=== PATIENT | female | born 1960 | race Caucasian/White ===

== ENCOUNTER 2017-12-10 17:25 | Inpatient (IN) ==
[2017-12-10] MEDS ORDERED: ONDANSETRON 4 MG/2 ML VIAL IV STA (18:19)
[2017-12-10] MEDS ORDERED: SODIUM CHLORIDE 0.9% 1,000 ML IV STA (18:19)
[2017-12-10 19:09] LABS: Basophils % 0.6 % (0.0-0.8); Eosinophils # 0.1 10*3/uL (0.0-0.87); Eosinophils % 1.4 % (0.00-10.9); Hematocrit 34.4 VOL% (35.7-47.0); Hemoglobin 12.2 GM/DL (12.0-16.0); Immature Granulocytes % 0.9 %; Immature Granulocytes Absolute 0.06 #; Lymphocytes # 0.8 10*3/uL (1.4-4.0); Lymphocytes % 12.5 % (21.3-54.2); Mean Corpuscular HGB Conc 35.5 GM/DL (32-36); Mean Corpuscular Hemoglobin 25 PG (27-34); Mean Corpuscular Volume 71.5 FL (87-102); Mean Platelet Volume 9.6 FL (9.6-12.0); Monocytes # 0.4 10*3/uL (0.11-0.8); Monocytes % 6.6 % (1.7-12.7); Platelet Count 495 T/CUMM (130-400); Red Blood Count 4.81 MC/CUMM (3.8-5.5); Red Cell Distribution Width 15.3 % (9.3-17.3); White Blood Count 6.4 T/CUMM (4-12)
[2017-12-10 19:13] LABS: Apearance,Urine Slightly Hazy (Clear); Bacteria,Urine Occasional /HPF (Few); Bilirubin,Urine Negative (Negative); Blood, Urine Negative (Negative); Glucose,Urine (UA) Negative (Negative); Hyaline Casts,Urine 1 /LPF (0-3); Ketones,Urine 5 mg/dL (Negative); Mucus,Urine Occasional /LPF (Occasional); Nitrite,Urine Negative (Negative); Protein,Urine Negative; RBC,Urine 1 /HPF (0-4); Squamous Epithelial Cell,Urine Occasional /HPF (0-10); Urine Color Amber (Yellow); Urine Specific Gravity 1.012 (1.001-1.035); WBC,Urine 8 /HPF (0-6)
[2017-12-10 19:31] LABS: Albumin 1.8 G/DL (3.4-5.0); Bilirubin,Total 1.7 MG/DL (0.2-1.0); Osmolality,Calculated 266.1 MOS/KG (273-304); Total Protein 5.4 G/DL (6.4-8.3)
[2017-12-10 19:40] LABS: Potassium 2.1 MMOL/L (3.5-5.1)
[2017-12-10] MEDS ORDERED: POTASSIUM CHLORIDE INJ 40 MEQ in SODIUM CHLORIDE 0.45% 1,000 ML IV SCH ×2 (20:30→21:00)
[2017-12-10] MEDS ORDERED: ALBUTEROL 2.5 MG/3 ML NEB RESP TX PRN (21:39)
[2017-12-10] MEDS ORDERED: ENOXAPARIN 40 MG/0.4 ML SYRINGE SUBCUT SCH (22:00)
[2017-12-10] MEDS ORDERED: CIPROFLOXACIN 400 MG/200 ML PREMIX IV ONE (22:04)
[2017-12-10] MEDS: MORPHINE 4 MG/1 ML VIAL IV PRN (22:08)
[2017-12-10] MEDS: CIPROFLOXACIN INJ 400 MG in PREMIX 1 EACH IV SCH (22:15)
[2017-12-11] MEDS: metroNIDAZOLE INJ 500 MG in PREMIX 1 EACH IV SCH ×4 (01:05→23:25)
[2017-12-11] MEDS: methylPREDNISolone SOD SUC 40 MG/1 ML VIAL IV SCH ×4 (01:05→18:02)
[2017-12-11] MEDS: POTASSIUM CHLORIDE INJ 40 MEQ in SODIUM CHLORIDE 0.9% 1,000 ML IV SCH ×2 (01:30→10:41)
[2017-12-11] MEDS ORDERED: SODIUM CHLORIDE 0.9% 500 ML IV ONE ×2 (04:33→10:40)
[2017-12-11 05:37] LABS: Basophils % 0.2 % (0.0-0.8); Eosinophils % 0.1 % (0.00-10.9); Hematocrit 28.5 VOL% (35.7-47.0); Hemoglobin 10.1 GM/DL (12.0-16.0); Lymphocytes # 0.3 10*3/uL (1.4-4.0); Lymphocytes % 3.2 % (21.3-54.2); Mean Corpuscular HGB Conc 35.4 GM/DL (32-36); Mean Corpuscular Hemoglobin 25 PG (27-34); Mean Corpuscular Volume 71.6 FL (87-102); Mean Platelet Volume 9.9 FL (9.6-12.0); Monocytes # 0.2 10*3/uL (0.11-0.8); Monocytes % 2.3 % (1.7-12.7); Neutrophils # 9.4 10*3/uL (1.4-7.4); Neutrophils % 93.2 % (38.7-73.9); Platelet Count 379 T/CUMM (130-400); Red Blood Count 3.98 MC/CUMM (3.8-5.5); Red Cell Distribution Width 15.2 % (9.3-17.3); White Blood Count 10.1 T/CUMM (4-12)
[2017-12-11 05:51] LABS: Calcium 6.6 MG/DL (8.5-10.1); Osmolality,Calculated 268.8 MOS/KG (273-304); Potassium 2.6 MMOL/L (3.5-5.1)
[2017-12-11 07:13] LABS: Band Neutrophils 22 % (0-10); Hypochromasia 3+; Lymphocytes 4 % (20-55); Platelet Estimate Normal; Segmented Neutrophils 70 % (50-85); Target Cells 2+; Total Cells Counted 100
[2017-12-11] MEDS ORDERED: THEOPHYLLINE ER 300 MG TABLET PO SCH (08:00)
[2017-12-11] MEDS ORDERED: PANTOPRAZOLE 40 MG TABLET PO SCH (09:00)
[2017-12-11] MEDS: CETIRIZINE 10 MG TABLET PO SCH (09:03)
[2017-12-11] MEDS: LOSARTAN 50 MG TABLET PO SCH (09:05)
[2017-12-11] MEDS: FLUTICASONE 50 MCG NASAL SPRAY 16 GM BOTTLE BOTH NARES SCH (09:10)
[2017-12-11] MEDS: MORPHINE 4 MG/1 ML VIAL IV PRN (09:10)
[2017-12-11] MEDS: MESALAMINE 800 MG TABLET PO SCH ×3 (09:30→20:48)
[2017-12-11] MEDS: CIPROFLOXACIN INJ 400 MG in PREMIX 1 EACH IV SCH ×2 (10:18→21:05)
[2017-12-11] MEDS ORDERED: MAGNESIUM SULF RIDER 2 GM in PREMIX 1 EACH IV PRN (11:16)
[2017-12-11] MEDS ORDERED: MAGNESIUM SULF RIDER 4 GM in PREMIX 1 EACH IV PRN (11:16)
[2017-12-11] MEDS ORDERED: FERROUS GLUCONATE 324 MG TABLET PO SCH (12:00)
[2017-12-11] MEDS ORDERED: IRON SUCROSE 100 MG/5 ML VIAL IV SCH (13:00)
[2017-12-11] MEDS: traMADol 50 MG TABLET PO PRN ×2 (15:18→20:48)
[2017-12-11] MEDS: SODIUM CHLOR 0.9% KCL 40 MEQ 40 MEQ/1,000 ML BAG IV SCH (17:58)
[2017-12-11] MEDS: IRON SUCROSE 100 MG in SODIUM CHLORIDE 0.9% 100 ML IV SCH (18:00)
[2017-12-11] MEDS: MONTELUKAST 10 MG TABLET PO SCH (20:48)
[2017-12-12] MEDS: methylPREDNISolone SOD SUC 40 MG/1 ML VIAL IV SCH ×4 (00:29→18:13)
[2017-12-12] MEDS: SODIUM CHLOR 0.9% KCL 40 MEQ 40 MEQ/1,000 ML BAG IV SCH ×2 (05:23→14:40)
[2017-12-12 05:46] LABS: Basophils % 0.2 % (0.0-0.8); Hematocrit 27.7 VOL% (35.7-47.0); Hemoglobin 10.2 GM/DL (12.0-16.0); Immature Granulocytes % 2.2 %; Immature Granulocytes Absolute 0.21 #; Lymphocytes # 0.7 10*3/uL (1.4-4.0); Lymphocytes % 6.9 % (21.3-54.2); Mean Corpuscular HGB Conc 36.8 GM/DL (32-36); Mean Corpuscular Hemoglobin 25 PG (27-34); Mean Corpuscular Volume 68.7 FL (87-102); Mean Platelet Volume 10.2 FL (9.6-12.0); Monocytes # 0.4 10*3/uL (0.11-0.8); Monocytes % 3.7 % (1.7-12.7); NRBC # 0.02 10*3/uL; Neutrophils # 8.5 10*3/uL (1.4-7.4); Platelet Count 406 T/CUMM (130-400); Red Blood Count 4.03 MC/CUMM (3.8-5.5); Red Cell Distribution Width 15.2 % (9.3-17.3); White Blood Count 9.7 T/CUMM (4-12)
[2017-12-12 06:20] LABS: Anisocytosis 1+; Band Neutrophils 51 % (0-10); Lymphocytes 7 % (20-55); Platelet Estimate Normal; Segmented Neutrophils 39 % (50-85); Target Cells Few; Total Cells Counted 100
[2017-12-12] MEDS: metroNIDAZOLE INJ 500 MG in PREMIX 1 EACH IV SCH ×2 (07:07→15:55)
[2017-12-12] MEDS: FLUTICASONE 50 MCG NASAL SPRAY 16 GM BOTTLE BOTH NARES SCH (08:39)
[2017-12-12] MEDS: IRON SUCROSE 100 MG in SODIUM CHLORIDE 0.9% 100 ML IV SCH (08:39)
[2017-12-12] MEDS: MESALAMINE 800 MG TABLET PO SCH ×3 (10:25→21:18)
[2017-12-12] MEDS: CETIRIZINE 10 MG TABLET PO SCH (10:25)
[2017-12-12] MEDS: traMADol 50 MG TABLET PO PRN ×2 (10:25→16:49)
[2017-12-12] MEDS: CIPROFLOXACIN INJ 400 MG in PREMIX 1 EACH IV SCH ×2 (11:07→21:18)
[2017-12-12] MEDS: ONDANSETRON 4 MG/2 ML VIAL IV PRN (21:18)
[2017-12-12] MEDS: MONTELUKAST 10 MG TABLET PO SCH (21:18)
[2017-12-12] MEDS: MORPHINE 4 MG/1 ML VIAL IV PRN (21:19)
[2017-12-13] MEDS: methylPREDNISolone SOD SUC 40 MG/1 ML VIAL IV SCH ×4 (00:04→21:10)
[2017-12-13] MEDS: traMADol 50 MG TABLET PO PRN ×3 (00:05→18:51)
[2017-12-13] MEDS: metroNIDAZOLE INJ 500 MG in PREMIX 1 EACH IV SCH ×2 (00:05→06:41)
[2017-12-13] MEDS: SODIUM CHLOR 0.9% KCL 40 MEQ 40 MEQ/1,000 ML BAG IV SCH ×3 (00:06→22:19)
[2017-12-13] MEDS: MORPHINE 4 MG/1 ML VIAL IV PRN ×2 (06:12→21:10)
[2017-12-13 06:21] LABS: Osmolality,Calculated 265.2 MOS/KG (273-304)
[2017-12-13 09:23] LABS: Albumin 1.6 G/DL (3.4-5.0); Bilirubin,Direct 0.63 MG/DL (0.0-0.20); Bilirubin,Indirect 0.3 MG/DL (0.0-1.0); Bilirubin,Total 0.9 MG/DL (0.2-1.0); Total Protein 4.9 G/DL (6.4-8.3)
[2017-12-13] MEDS ORDERED: LIDOCAINE 1% 5 ML VIAL ONE (10:16)
[2017-12-13] MEDS ORDERED: PROPOFOL 200 MG/20 ML VIAL IV ONE (10:16)
[2017-12-13] MEDS: MESALAMINE 800 MG TABLET PO SCH ×3 (10:36→21:10)
[2017-12-13] MEDS: CETIRIZINE 10 MG TABLET PO SCH (10:37)
[2017-12-13] MEDS: FLUTICASONE 50 MCG NASAL SPRAY 16 GM BOTTLE BOTH NARES SCH (10:37)
[2017-12-13] MEDS: IRON SUCROSE 100 MG in SODIUM CHLORIDE 0.9% 100 ML IV SCH (10:37)
[2017-12-13] MEDS: LOSARTAN 50 MG TABLET PO SCH (10:37)
[2017-12-13] MEDS: MEROPENEM 1,000 MG in SYRINGE 1 EACH IV SCH ×2 (10:38→17:13)
[2017-12-13] MEDS ORDERED: MEROPENEM 1,000 MG in SODIUM CHLORIDE 0.9% 100 ML IV ONE (11:00)
[2017-12-13] MEDS: METOCLOPRAMIDE 10 MG/2 ML VIAL IV SCH ×2 (12:51→17:51)
[2017-12-13] MEDS: MONTELUKAST 10 MG TABLET PO SCH (21:10)
[2017-12-13] MEDS: ONDANSETRON 4 MG/2 ML VIAL IV PRN (21:10)
[2017-12-14] MEDS: METOCLOPRAMIDE 10 MG/2 ML VIAL IV SCH ×5 (00:57→21:08)
[2017-12-14] MEDS: MEROPENEM 1,000 MG in SYRINGE 1 EACH IV SCH ×3 (00:59→16:47)
[2017-12-14] MEDS: methylPREDNISolone SOD SUC 40 MG/1 ML VIAL IV SCH ×3 (03:32→14:32)
[2017-12-14] MEDS: SODIUM CHLOR 0.9% KCL 40 MEQ 40 MEQ/1,000 ML BAG IV SCH ×2 (05:34→14:32)
[2017-12-14] MEDS: traMADol 50 MG TABLET PO PRN ×2 (06:15→17:30)
[2017-12-14 06:29] LABS: Basophils % 0.1 % (0.0-0.8); Hemoglobin 10.2 GM/DL (12.0-16.0); Immature Granulocytes % 0.8 %; Immature Granulocytes Absolute 0.06 #; Lymphocytes # 0.4 10*3/uL (1.4-4.0); Lymphocytes % 4.6 % (21.3-54.2); Mean Corpuscular Hemoglobin 25 PG (27-34); Mean Corpuscular Volume 73.9 FL (87-102); Mean Platelet Volume 10.2 FL (9.6-12.0); Monocytes # 0.3 10*3/uL (0.11-0.8); Monocytes % 4.2 % (1.7-12.7); Neutrophils # 7.1 10*3/uL (1.4-7.4); Neutrophils % 90.3 % (38.7-73.9); Platelet Count 301 T/CUMM (130-400); Red Blood Count 4.06 MC/CUMM (3.8-5.5); White Blood Count 7.8 T/CUMM (4-12)
[2017-12-14 06:55] LABS: Band Neutrophils 1 % (0-10); Hypochromasia 1+; Lymphocytes 5 % (20-55); Platelet Estimate Adequate; Segmented Neutrophils 92 % (50-85); Total Cells Counted 100
[2017-12-14 07:00] LABS: Calcium 7.2 MG/DL (8.5-10.1); Osmolality,Calculated 267.1 MOS/KG (273-304)
[2017-12-14] MEDS: LOSARTAN 50 MG TABLET PO SCH (09:12)
[2017-12-14] MEDS: MESALAMINE 800 MG TABLET PO SCH ×3 (09:12→21:08)
[2017-12-14] MEDS: CETIRIZINE 10 MG TABLET PO SCH (09:12)
[2017-12-14] MEDS: IRON SUCROSE 100 MG in SODIUM CHLORIDE 0.9% 100 ML IV SCH (09:14)
[2017-12-14] MEDS: FLUTICASONE 50 MCG NASAL SPRAY 16 GM BOTTLE BOTH NARES SCH (09:14)
[2017-12-14] MEDS: MORPHINE 4 MG/1 ML VIAL IV PRN ×2 (09:17→13:06)
[2017-12-14] MEDS: SODIUM CHLORIDE 0.9% 1,000 ML IV SCH (16:46)
[2017-12-14] MEDS: FLUCONAZOLE 100 MG TABLET PO SCH (16:47)
[2017-12-14] MEDS: ALBUTEROL 1.25 MG/3 ML NEB RESP TX SCH (18:40)
[2017-12-14] MEDS: MONTELUKAST 10 MG TABLET PO SCH (21:08)
[2017-12-15] MEDS: ALBUTEROL 1.25 MG/3 ML NEB RESP TX SCH ×4 (00:10→19:16)
[2017-12-15] MEDS: traMADol 50 MG TABLET PO PRN ×3 (01:08→20:22)
[2017-12-15] MEDS: MEROPENEM 1,000 MG in SYRINGE 1 EACH IV SCH ×3 (01:20→17:20)
[2017-12-15] MEDS: METOCLOPRAMIDE 10 MG/2 ML VIAL IV SCH ×4 (03:21→20:36)
[2017-12-15] MEDS: SODIUM CHLORIDE 0.9% 1,000 ML IV SCH ×2 (06:27→20:39)
[2017-12-15 08:21] LABS: Albumin 1.6 G/DL (3.4-5.0); Bilirubin,Total 1.2 MG/DL (0.2-1.0); Calcium 7.5 MG/DL (8.5-10.1); Osmolality,Calculated 269.8 MOS/KG (273-304); Potassium 4.2 MMOL/L (3.5-5.1); Total Protein 4.8 G/DL (6.4-8.3)
[2017-12-15] MEDS: predniSONE 20 MG TABLET PO SCH (09:34)
[2017-12-15] MEDS: LOSARTAN 50 MG TABLET PO SCH (09:34)
[2017-12-15] MEDS: MESALAMINE 800 MG TABLET PO SCH ×3 (09:34→20:22)
[2017-12-15] MEDS: CETIRIZINE 10 MG TABLET PO SCH (09:34)
[2017-12-15] MEDS: FLUTICASONE 50 MCG NASAL SPRAY 16 GM BOTTLE BOTH NARES SCH (09:35)
[2017-12-15] MEDS: KETOROLAC 30 MG/1 ML VIAL IV PRN (14:32)
[2017-12-15] MEDS: FLUCONAZOLE 100 MG TABLET PO SCH (16:58)
[2017-12-15] MEDS: MONTELUKAST 10 MG TABLET PO SCH (22:23)
[2017-12-15] MEDS: ALUMINUM/MAGNES/SIMETH MAX STR 30 ML UDCUP PO PRN (22:23)
[2017-12-16] MEDS: ALBUTEROL 1.25 MG/3 ML NEB RESP TX SCH ×4 (00:16→18:57)
[2017-12-16] MEDS: MEROPENEM 1,000 MG in SYRINGE 1 EACH IV SCH ×3 (00:53→16:45)
[2017-12-16] MEDS: ALUMINUM/MAGNES/SIMETH MAX STR 30 ML UDCUP PO PRN ×2 (03:03→10:21)
[2017-12-16] MEDS: METOCLOPRAMIDE 10 MG/2 ML VIAL IV SCH (05:55)
[2017-12-16 06:03] LABS: Basophils % 0.1 % (0.0-0.8); Eosinophils # 0.1 10*3/uL (0.0-0.87); Eosinophils % 0.8 % (0.00-10.9); Hematocrit 26.4 VOL% (35.7-47.0); Hemoglobin 9.4 GM/DL (12.0-16.0); Immature Granulocytes % 0.7 %; Immature Granulocytes Absolute 0.05 #; Lymphocytes # 0.7 10*3/uL (1.4-4.0); Lymphocytes % 9.9 % (21.3-54.2); Mean Corpuscular HGB Conc 35.6 GM/DL (32-36); Mean Corpuscular Hemoglobin 26 PG (27-34); Mean Corpuscular Volume 71.5 FL (87-102); Mean Platelet Volume 11.2 FL (9.6-12.0); Monocytes # 0.9 10*3/uL (0.11-0.8); Monocytes % 12.2 % (1.7-12.7); Neutrophils # 5.5 10*3/uL (1.4-7.4); Neutrophils % 76.3 % (38.7-73.9); Platelet Count 273 T/CUMM (130-400); Red Blood Count 3.69 MC/CUMM (3.8-5.5); Red Cell Distribution Width 15.7 % (9.3-17.3); White Blood Count 7.2 T/CUMM (4-12)
[2017-12-16 06:26] LABS: Albumin 1.6 G/DL (3.4-5.0); Bilirubin,Total 1.1 MG/DL (0.2-1.0); Calcium 7.6 MG/DL (8.5-10.1); Osmolality,Calculated 271.7 MOS/KG (273-304); Potassium 4.1 MMOL/L (3.5-5.1); Total Protein 4.5 G/DL (6.4-8.3)
[2017-12-16] MEDS: PANTOPRAZOLE 40 MG TABLET PO SCH ×2 (07:30→18:23)
[2017-12-16] MEDS: KETOROLAC 30 MG/1 ML VIAL IV PRN (08:15)
[2017-12-16] MEDS ORDERED: AZITHROMYCIN INJ 250 MG in SODIUM CHLORIDE 0.9% 250 ML IV SCH (09:00)
[2017-12-16] MEDS: FLUTICASONE 50 MCG NASAL SPRAY 16 GM BOTTLE BOTH NARES SCH (09:53)
[2017-12-16] MEDS: predniSONE 20 MG TABLET PO SCH (09:55)
[2017-12-16] MEDS: LOSARTAN 50 MG TABLET PO SCH (09:55)
[2017-12-16] MEDS: MESALAMINE 800 MG TABLET PO SCH ×3 (09:55→21:01)
[2017-12-16] MEDS: CETIRIZINE 10 MG TABLET PO SCH (09:55)
[2017-12-16] MEDS: SODIUM CHLORIDE 0.9% 1,000 ML IV SCH (10:00)
[2017-12-16] MEDS: traMADol 50 MG TABLET PO PRN ×2 (12:22→21:01)
[2017-12-16] MEDS: FLUCONAZOLE 100 MG TABLET PO SCH (16:15)
[2017-12-16] MEDS ORDERED: SODIUM PHOSPHATE INJ 30 MMOL in SODIUM CHLORIDE 0.9% 250 ML IV ONE (17:00)
[2017-12-16] MEDS: MONTELUKAST 10 MG TABLET PO SCH (21:01)
[2017-12-17] MEDS: ALBUTEROL 1.25 MG/3 ML NEB RESP TX SCH ×4 (00:47→19:32)
[2017-12-17] MEDS: MEROPENEM 1,000 MG in SYRINGE 1 EACH IV SCH ×3 (01:00→17:13)
[2017-12-17] MEDS: KETOROLAC 30 MG/1 ML VIAL IV PRN ×3 (03:10→21:27)
[2017-12-17] MEDS: PANTOPRAZOLE 40 MG TABLET PO SCH ×3 (05:40→18:52)
[2017-12-17 06:20] LABS: Eosinophils % 0.4 % (0.00-10.9); Hematocrit 29.3 VOL% (35.7-47.0); Hemoglobin 10.1 GM/DL (12.0-16.0); Immature Granulocytes % 0.5 %; Immature Granulocytes Absolute 0.03 #; Lymphocytes # 0.7 10*3/uL (1.4-4.0); Lymphocytes % 12.5 % (21.3-54.2); Mean Corpuscular HGB Conc 34.5 GM/DL (32-36); Mean Corpuscular Hemoglobin 25 PG (27-34); Mean Corpuscular Volume 72.9 FL (87-102); Mean Platelet Volume 10.9 FL (9.6-12.0); Monocytes # 0.7 10*3/uL (0.11-0.8); Monocytes % 11.8 % (1.7-12.7); Neutrophils # 4.1 10*3/uL (1.4-7.4); Neutrophils % 74.8 % (38.7-73.9); Platelet Count 325 T/CUMM (130-400); Red Blood Count 4.02 MC/CUMM (3.8-5.5); Red Cell Distribution Width 16.1 % (9.3-17.3); White Blood Count 5.5 T/CUMM (4-12)
[2017-12-17 06:58] LABS: Albumin 1.8 G/DL (3.4-5.0); Bilirubin,Total 0.6 MG/DL (0.2-1.0); Potassium 3.6 MMOL/L (3.5-5.1); Total Protein 4.9 G/DL (6.4-8.3)
[2017-12-17] MEDS: SODIUM CHLORIDE 0.9% 1,000 ML IV SCH ×2 (08:05→21:16)
[2017-12-17] MEDS: FLUTICASONE 50 MCG NASAL SPRAY 16 GM BOTTLE BOTH NARES SCH (08:56)
[2017-12-17] MEDS: LOSARTAN 50 MG TABLET PO SCH (08:58)
[2017-12-17] MEDS: CETIRIZINE 10 MG TABLET PO SCH (09:07)
[2017-12-17] MEDS: MESALAMINE 800 MG TABLET PO SCH ×3 (09:07→21:15)
[2017-12-17] MEDS: predniSONE 20 MG TABLET PO SCH (09:07)
[2017-12-17] MEDS: AZITHROMYCIN 250 MG TABLET PO SCH (09:30)
[2017-12-17] MEDS: FLUCONAZOLE 100 MG TABLET PO SCH (15:58)
[2017-12-17] MEDS: MONTELUKAST 10 MG TABLET PO SCH (21:15)
[2017-12-18] MEDS: MEROPENEM 1,000 MG in SYRINGE 1 EACH IV SCH ×3 (02:34→16:52)
[2017-12-18 03:23] LABS: Eosinophils % 0.6 % (0.00-10.9); Hematocrit 24.8 VOL% (35.7-47.0); Hemoglobin 8.4 GM/DL (12.0-16.0); Immature Granulocytes % 0.9 %; Immature Granulocytes Absolute 0.04 #; Lymphocytes # 0.9 10*3/uL (1.4-4.0); Lymphocytes % 18.7 % (21.3-54.2); Mean Corpuscular HGB Conc 33.9 GM/DL (32-36); Mean Corpuscular Hemoglobin 25 PG (27-34); Mean Corpuscular Volume 73.8 FL (87-102); Mean Platelet Volume 10.8 FL (9.6-12.0); Monocytes # 0.8 10*3/uL (0.11-0.8); Neutrophils # 2.9 10*3/uL (1.4-7.4); Neutrophils % 61.8 % (38.7-73.9); Platelet Count 304 T/CUMM (130-400); Red Blood Count 3.36 MC/CUMM (3.8-5.5); Red Cell Distribution Width 15.9 % (9.3-17.3); White Blood Count 4.7 T/CUMM (4-12)
[2017-12-18 03:52] LABS: Albumin 1.5 G/DL (3.4-5.0); Bilirubin,Total 0.6 MG/DL (0.2-1.0); Calcium 7.5 MG/DL (8.5-10.1); Total Protein 4.1 G/DL (6.4-8.3)
[2017-12-18 03:53] LABS: Osmolality,Calculated 276.3 MOS/KG (273-304)
[2017-12-18 04:14] LABS: Anisocytosis 1+; Band Neutrophils 2 % (0-10); Hypochromasia 1+; Lymphocytes 16 % (20-55); Segmented Neutrophils 69 % (50-85); Total Cells Counted 100
[2017-12-18 04:15] LABS: Platelet Estimate Normal; Target Cells 2+
[2017-12-18] MEDS: KETOROLAC 30 MG/1 ML VIAL IV PRN ×2 (05:19→20:02)
[2017-12-18] MEDS: ALBUTEROL 1.25 MG/3 ML NEB RESP TX SCH ×4 (06:56→19:03)
[2017-12-18] MEDS: AZITHROMYCIN 250 MG TABLET PO SCH ×2 (08:17→09:57)
[2017-12-18] MEDS: CETIRIZINE 10 MG TABLET PO SCH (08:28)
[2017-12-18] MEDS: PANTOPRAZOLE 40 MG TABLET PO SCH ×2 (08:28→18:28)
[2017-12-18] MEDS: MESALAMINE 800 MG TABLET PO SCH ×3 (08:28→20:05)
[2017-12-18] MEDS: predniSONE 20 MG TABLET PO SCH (08:28)
[2017-12-18] MEDS: LOSARTAN 50 MG TABLET PO SCH (08:29)
[2017-12-18] MEDS: FLUTICASONE 50 MCG NASAL SPRAY 16 GM BOTTLE BOTH NARES SCH (08:31)
[2017-12-18] MEDS: SODIUM CHLORIDE 0.9% 1,000 ML IV SCH (11:30)
[2017-12-18] MEDS: traMADol 50 MG TABLET PO PRN (14:30)
[2017-12-18] MEDS ORDERED: ERGOCALCIFEROL 50,000 UNIT CAPSULE PO SCH (15:30)
[2017-12-18] MEDS: FLUCONAZOLE 100 MG TABLET PO SCH (15:42)
[2017-12-18 16:49] LABS: Folate 4.3 NG/ML (5.4-24.0); HIV Antigen/Antibody Result Nonreactive (Nonreactive); Vitamin B12 514 PG/ML (211-911)
[2017-12-18] MEDS: MONTELUKAST 10 MG TABLET PO SCH (20:05)
[2017-12-18] MEDS: POTASSIUM PHOS/SOD PHOS POWDER 250 MG PACK PO SCH (20:05)
[2017-12-19] MEDS: ALBUTEROL 1.25 MG/3 ML NEB RESP TX SCH ×4 (00:10→19:02)
[2017-12-19] MEDS: MEROPENEM 1,000 MG in SYRINGE 1 EACH IV SCH ×3 (00:40→16:53)
[2017-12-19 06:44] LABS: Eosinophils # 0.1 10*3/uL (0.0-0.87); Eosinophils % 0.8 % (0.00-10.9); Hematocrit 28.4 VOL% (35.7-47.0); Hemoglobin 9.7 GM/DL (12.0-16.0); Immature Granulocytes % 0.6 %; Immature Granulocytes Absolute 0.04 #; Lymphocytes # 1.1 10*3/uL (1.4-4.0); Lymphocytes % 16.9 % (21.3-54.2); Mean Corpuscular HGB Conc 34.2 GM/DL (32-36); Mean Corpuscular Hemoglobin 25 PG (27-34); Mean Platelet Volume 10.2 FL (9.6-12.0); Monocytes % 15.4 % (1.7-12.7); NRBC # 0.02 10*3/uL; Neutrophils # 4.3 10*3/uL (1.4-7.4); Neutrophils % 66.3 % (38.7-73.9); Platelet Count 402 T/CUMM (130-400); Red Blood Count 3.84 MC/CUMM (3.8-5.5); Red Cell Distribution Width 16.1 % (9.3-17.3); White Blood Count 6.4 T/CUMM (4-12)
[2017-12-19 07:15] LABS: Albumin 1.6 G/DL (3.4-5.0); Bilirubin,Total 0.8 MG/DL (0.2-1.0); Calcium 7.8 MG/DL (8.5-10.1); Osmolality,Calculated 270.7 MOS/KG (273-304); Potassium 3.9 MMOL/L (3.5-5.1); Total Protein 4.9 G/DL (6.4-8.3)
[2017-12-19] MEDS: predniSONE 20 MG TABLET PO SCH (09:35)
[2017-12-19] MEDS: MESALAMINE 800 MG TABLET PO SCH ×3 (09:35→20:49)
[2017-12-19] MEDS: LOSARTAN 50 MG TABLET PO SCH (09:35)
[2017-12-19] MEDS: AZITHROMYCIN 250 MG TABLET PO SCH (09:35)
[2017-12-19] MEDS: MULTIVITAMIN (BEROCCA) TABLET PO SCH (09:35)
[2017-12-19] MEDS: CETIRIZINE 10 MG TABLET PO SCH (09:35)
[2017-12-19] MEDS: FLUTICASONE 50 MCG NASAL SPRAY 16 GM BOTTLE BOTH NARES SCH (09:36)
[2017-12-19] MEDS: PANTOPRAZOLE 40 MG TABLET PO SCH ×2 (09:36→18:10)
[2017-12-19] MEDS: POTASSIUM PHOS/SOD PHOS POWDER 250 MG PACK PO SCH ×2 (09:36→20:49)
[2017-12-19] MEDS: KETOROLAC 30 MG/1 ML VIAL IV PRN ×2 (11:43→18:10)
[2017-12-19] MEDS: SODIUM CHLORIDE 0.9% 1,000 ML IV SCH (12:30)
[2017-12-19] MEDS: FLUCONAZOLE 100 MG TABLET PO SCH (16:54)
[2017-12-19] MEDS: SIMETHICONE CHEW 80 MG TABLET PO SCH ×2 (18:10→20:49)
[2017-12-19] MEDS: MONTELUKAST 10 MG TABLET PO SCH (20:48)
[2017-12-20] MEDS: ALBUTEROL 1.25 MG/3 ML NEB RESP TX SCH ×4 (01:21→19:32)
[2017-12-20] MEDS: SODIUM CHLORIDE 0.9% 1,000 ML IV SCH ×3 (03:00→17:31)
[2017-12-20] MEDS: MEROPENEM 1,000 MG in SYRINGE 1 EACH IV SCH ×2 (06:58→13:21)
[2017-12-20 07:16] LABS: Albumin 1.6 G/DL (3.4-5.0); Bilirubin,Total 0.6 MG/DL (0.2-1.0); Calcium 7.3 MG/DL (8.5-10.1); Osmolality,Calculated 276.3 MOS/KG (273-304); Potassium 4.3 MMOL/L (3.5-5.1); Total Protein 4.6 G/DL (6.4-8.3)
[2017-12-20] MEDS: PANTOPRAZOLE 40 MG TABLET PO SCH ×2 (08:07→18:29)
[2017-12-20] MEDS: AZITHROMYCIN 250 MG TABLET PO SCH (08:07)
[2017-12-20] MEDS: CETIRIZINE 10 MG TABLET PO SCH (08:07)
[2017-12-20] MEDS: KETOROLAC 30 MG/1 ML VIAL IV PRN (08:07)
[2017-12-20] MEDS: MULTIVITAMIN (BEROCCA) TABLET PO SCH (08:07)
[2017-12-20] MEDS: predniSONE 20 MG TABLET PO SCH (08:08)
[2017-12-20] MEDS: LOSARTAN 50 MG TABLET PO SCH (08:08)
[2017-12-20] MEDS: FLUTICASONE 50 MCG NASAL SPRAY 16 GM BOTTLE BOTH NARES SCH (08:12)
[2017-12-20] MEDS: MESALAMINE 800 MG TABLET PO SCH ×3 (08:12→20:47)
[2017-12-20] MEDS: POTASSIUM PHOS/SOD PHOS POWDER 250 MG PACK PO SCH ×2 (08:13→20:46)
[2017-12-20] MEDS: SIMETHICONE CHEW 80 MG TABLET PO SCH ×4 (08:13→20:47)
[2017-12-20] MEDS: FLUCONAZOLE 100 MG TABLET PO SCH (16:29)
[2017-12-20] MEDS: ACETAMINOPHEN 325 MG TABLET PO PRN ×2 (16:29→23:59)
[2017-12-20] MEDS: MONTELUKAST 10 MG TABLET PO SCH (20:47)
[2017-12-21] MEDS: ALBUTEROL 1.25 MG/3 ML NEB RESP TX SCH ×2 (01:41→07:25)
[2017-12-21] MEDS: ACETAMINOPHEN 325 MG TABLET PO PRN (04:38)
[2017-12-21] MEDS: PANTOPRAZOLE 40 MG TABLET PO SCH (06:27)
[2017-12-21] MEDS: CETIRIZINE 10 MG TABLET PO SCH (08:37)
[2017-12-21] MEDS: MESALAMINE 800 MG TABLET PO SCH (08:38)
[2017-12-21] MEDS: AZITHROMYCIN 250 MG TABLET PO SCH (08:38)
[2017-12-21] MEDS: LOSARTAN 50 MG TABLET PO SCH (08:38)
[2017-12-21] MEDS: MULTIVITAMIN (BEROCCA) TABLET PO SCH (08:39)
[2017-12-21] MEDS: predniSONE 20 MG TABLET PO SCH (08:39)
[2017-12-21] MEDS: SIMETHICONE CHEW 80 MG TABLET PO SCH ×2 (08:40→13:02)
[2017-12-21] MEDS: FLUTICASONE 50 MCG NASAL SPRAY 16 GM BOTTLE BOTH NARES SCH (08:40)
[2017-12-21] MEDS: POTASSIUM PHOS/SOD PHOS POWDER 250 MG PACK PO SCH (08:41)
[2017-12-21] MEDS ORDERED: KETOROLAC 30 MG/1 ML VIAL IM ONE (09:00)
[2017-12-21] MEDS: ONDANSETRON 4 MG/2 ML VIAL IV PRN (09:30)
[2017-12-21] MEDS: SODIUM CHLORIDE 0.9% 1,000 ML IV SCH (10:30)
[2017-12-21 11:57] VITALS: BP 112/78
[2017-12-22 11:40] LABS: Bone % 12.3 % (19.1-67.7); Intestine 48.5 IU/L (0.0-11.0); Intestine % 26.8 % (0.0-20.6)
[2017-12-24 08:26] LABS: Vitamin A, S 74.6 mcg/dL (32.5-78.0)
== END 2017-12-21 14:10 | disposition home or self-care (01) | DRG 386 ==
LOC: N.ED 17:25 → N.EDINP 21:35 → SUATTDRO 21:35 → N.2E 22:52
PROVIDERS: ATTEND Hospitalist

== ENCOUNTER 2018-01-27 10:38 | Inpatient (IN) ==
[2018-01-27 13:31] LABS: Basophils % 0.6 % (0.0-0.8); Eosinophils # 0.1 10*3/uL (0.0-0.87); Eosinophils % 1.2 % (0.00-10.9); Hematocrit 28.8 VOL% (35.7-47.0); Hemoglobin 10.1 GM/DL (12.0-16.0); Immature Granulocytes % 0.2 %; Immature Granulocytes Absolute 0.01 #; Lymphocytes % 21.6 % (21.3-54.2); Mean Corpuscular HGB Conc 35.1 GM/DL (32-36); Mean Corpuscular Hemoglobin 27 PG (27-34); Mean Corpuscular Volume 75.8 FL (87-102); Mean Platelet Volume 10.1 FL (9.6-12.0); Monocytes # 0.6 10*3/uL (0.11-0.8); Monocytes % 11.9 % (1.7-12.7); NRBC # 0.02 10*3/uL; Neutrophils # 3.1 10*3/uL (1.4-7.4); Neutrophils % 64.5 % (38.7-73.9); Platelet Count 299 T/CUMM (130-400); Red Cell Distribution Width 15.3 % (9.3-17.3); White Blood Count 4.8 T/CUMM (4-12)
[2018-01-27 13:47] LABS: Albumin 1.2 G/DL (3.4-5.0); Bilirubin,Total 0.5 MG/DL (0.2-1.0); Calcium 6.7 MG/DL (8.5-10.1); Osmolality,Calculated 277.3 MOS/KG (273-304); Potassium 2.8 MMOL/L (3.5-5.1); Total Protein 3.8 G/DL (6.4-8.3)
[2018-01-27] MEDS ORDERED: ONDANSETRON 4 MG/2 ML VIAL IV PRN (16:26)
[2018-01-27] MEDS ORDERED: ACETAMINOPHEN 325 MG TABLET PO PRN (16:26)
[2018-01-27] MEDS ORDERED: ALBUTEROL/IPRATROPIUM 3 ML NEB RESP TX PRN (17:21)
[2018-01-27 17:32] LABS: Apearance,Urine CLEAR (Clear); Bilirubin,Urine Negative (Negative); Blood, Urine Negative (Negative); Glucose,Urine (UA) Negative (Negative); Ketones,Urine Negative (Negative); Nitrite,Urine Negative (Negative); Protein,Urine Negative; RBC,Urine <1 /HPF (0-4); Squamous Epithelial Cell,Urine Occasional /HPF (0-10); Urine Color Yellow (Yellow); Urine Specific Gravity 1.029 (1.001-1.035); Urine Urobilinogen < 2.0 EU/DL (0.2-1.0); WBC,Urine 1 /HPF (0-6)
[2018-01-27] MEDS: ENOXAPARIN 80 MG/0.8 ML SYRINGE SUBCUT SCH (19:36)
[2018-01-27] MEDS: POTASSIUM CHLORIDE 20 MEQ TABLET PO PRN (22:50)
[2018-01-27] MEDS: APIXABAN 5 MG TABLET PO SCH (22:54)
[2018-01-28] MEDS: ENOXAPARIN 80 MG/0.8 ML SYRINGE SUBCUT SCH (06:04)
[2018-01-28 06:18] LABS: Basophils # 0.1 10*3/uL (0.0-0.2); Basophils % 1.9 % (0.0-0.8); Eosinophils # 0.1 10*3/uL (0.0-0.87); Eosinophils % 1.4 % (0.00-10.9); Hematocrit 26.3 VOL% (35.7-47.0); Immature Granulocytes % 0.3 %; Immature Granulocytes Absolute 0.01 #; Lymphocytes # 0.9 10*3/uL (1.4-4.0); Lymphocytes % 24.5 % (21.3-54.2); Mean Corpuscular HGB Conc 34.2 GM/DL (32-36); Mean Corpuscular Hemoglobin 26 PG (27-34); Mean Corpuscular Volume 76.7 FL (87-102); Monocytes # 0.4 10*3/uL (0.11-0.8); Monocytes % 12.1 % (1.7-12.7); Neutrophils # 2.2 10*3/uL (1.4-7.4); Neutrophils % 59.8 % (38.7-73.9); Platelet Count 278 T/CUMM (130-400); Red Blood Count 3.43 MC/CUMM (3.8-5.5); Red Cell Distribution Width 15.1 % (9.3-17.3); White Blood Count 3.6 T/CUMM (4-12)
[2018-01-28 06:28] LABS: INR 1.1; Partial Thromboplastin Time 32.8 SECS (0-40)
[2018-01-28 06:32] LABS: Calcium 6.4 MG/DL (8.5-10.1); Osmolality,Calculated 281.8 MOS/KG (273-304); Potassium 2.7 MMOL/L (3.5-5.1)
[2018-01-28 06:42] LABS: Cholesterol < 50 MG/DL (50-200); HDL Cholesterol 28 MG/DL (40-60); Risk Ratio 1.79; Triglycerides 41 MG/DL (2-150); VLDL CHOLESTEROL 8.2 MG/DL
[2018-01-28] MEDS: APIXABAN 5 MG TABLET PO SCH ×2 (09:51→20:39)
[2018-01-28] MEDS: PANTOPRAZOLE 40 MG TABLET PO SCH (09:51)
[2018-01-28] MEDS: POTASSIUM CHLORIDE RIDER 10 MEQ in PREMIX 1 EACH IV PRN ×5 (11:37→16:38)
[2018-01-28] MEDS: TAMSULOSIN 0.4 MG CAPSULE PO SCH (14:07)
[2018-01-28 14:53] LABS: Apearance,Urine CLEAR (Clear); Bacteria,Urine Few /HPF (Few); Bilirubin,Urine Negative (Negative); Blood, Urine Small mg/dL (Negative); Glucose,Urine (UA) Negative (Negative); Ketones,Urine Negative (Negative); Mucus,Urine Occasional /LPF (Occasional); Nitrite,Urine Positive (Negative); Protein,Urine Negative; RBC,Urine 1 /HPF (0-4); Squamous Epithelial Cell,Urine Occasional /HPF (0-10); Urine Color Yellow (Yellow); Urine Specific Gravity 1.013 (1.001-1.035); WBC,Urine 5 /HPF (0-6)
[2018-01-28] MEDS: ZINC OXIDE PASTE 113 GM TUBE TOP SCH (20:43)
[2018-01-28] MEDS: POTASSIUM CHLORIDE 20 MEQ TABLET PO PRN (21:32)
[2018-01-29] MEDS: POTASSIUM CHLORIDE 20 MEQ TABLET PO PRN ×3 (00:20→06:07)
[2018-01-29 05:30] LABS: INR 1.2; PT Patient Result 12.3 SECS; Partial Thromboplastin Time 32.4 SECS (0-40)
[2018-01-29 05:32] LABS: Basophils # 0.1 10*3/uL (0.0-0.2); Basophils % 1.9 % (0.0-0.8); Eosinophils # 0.1 10*3/uL (0.0-0.87); Eosinophils % 2.2 % (0.00-10.9); Hematocrit 26.1 VOL% (35.7-47.0); Hemoglobin 8.9 GM/DL (12.0-16.0); Immature Granulocytes % 0.6 %; Immature Granulocytes Absolute 0.02 #; Lymphocytes % 28.3 % (21.3-54.2); Mean Corpuscular HGB Conc 34.1 GM/DL (32-36); Mean Corpuscular Hemoglobin 26 PG (27-34); Mean Platelet Volume 9.6 FL (9.6-12.0); Monocytes # 0.5 10*3/uL (0.11-0.8); Monocytes % 12.5 % (1.7-12.7); Neutrophils % 54.5 % (38.7-73.9); Platelet Count 279 T/CUMM (130-400); Red Blood Count 3.39 MC/CUMM (3.8-5.5); Red Cell Distribution Width 15.4 % (9.3-17.3); White Blood Count 3.6 T/CUMM (4-12)
[2018-01-29 05:36] LABS: Calcium 6.6 MG/DL (8.5-10.1); Osmolality,Calculated 277.3 MOS/KG (273-304); Potassium 3.2 MMOL/L (3.5-5.1)
[2018-01-29 06:39] LABS: Band Neutrophils 3 % (0-10); Eosinophils 2 % (0-10); Lymphocytes 25 % (20-55); Segmented Neutrophils 61 % (50-85); Total Cells Counted 100
[2018-01-29 06:40] LABS: Anisocytosis 1+; Hypochromasia 1+; Platelet Estimate Adequate; Target Cells 1+
[2018-01-29] MEDS: PANTOPRAZOLE 40 MG TABLET PO SCH ×2 (08:13→18:13)
[2018-01-29] MEDS: APIXABAN 5 MG TABLET PO SCH ×2 (08:13→20:59)
[2018-01-29] MEDS ORDERED: ALBUTEROL 2.5 MG/3 ML NEB RESP TX PRN ×2 (08:24→14:00)
[2018-01-29] MEDS ORDERED: ACETAMINOPHEN 500 MG TABLET PO PRN (08:24)
[2018-01-29] MEDS ORDERED: traMADol 50 MG TABLET PO PRN (08:24)
[2018-01-29] MEDS ORDERED: METHOCARBAMOL 500 MG TABLET PO PRN (08:24)
[2018-01-29] MEDS ORDERED: POTASSIUM CHLORIDE 20 MEQ TABLET PO ONE (08:26)
[2018-01-29] MEDS ORDERED: MAGNESIUM SULF RIDER 2 GM in PREMIX 1 EACH IV ONE (08:27)
[2018-01-29] MEDS ORDERED: MAGNESIUM OXIDE 400 MG TABLET PO ONE (08:27)
[2018-01-29] MEDS ORDERED: MERCAPTOPURINE 50 MG TABLET PO SCH (09:00)
[2018-01-29] MEDS: FERROUS GLUCONATE 324 MG TABLET PO SCH ×2 (09:56→20:58)
[2018-01-29] MEDS: THEOPHYLLINE ER 300 MG TABLET PO SCH (09:56)
[2018-01-29] MEDS: MESALAMINE 800 MG TABLET PO SCH ×3 (09:56→20:56)
[2018-01-29] MEDS: MULTIVITAMIN (BEROCCA) TABLET PO SCH (09:56)
[2018-01-29] MEDS: CETIRIZINE 10 MG TABLET PO SCH (09:56)
[2018-01-29] MEDS: CIPROFLOXACIN 500 MG TABLET PO SCH ×2 (09:56→20:57)
[2018-01-29] MEDS: LOSARTAN 50 MG TABLET PO SCH (09:56)
[2018-01-29] MEDS: ZINC OXIDE PASTE 113 GM TUBE TOP SCH ×2 (09:57→20:59)
[2018-01-29] MEDS: TAMSULOSIN 0.4 MG CAPSULE PO SCH (09:57)
[2018-01-29] MEDS: MAGNESIUM OXIDE 400 MG TABLET PO SCH (10:56)
[2018-01-29] MEDS: COLESTIPOL 1 GM TABLET PO SCH ×2 (12:12→20:55)
[2018-01-29] MEDS: POTASSIUM CHLORIDE 20 MEQ TABLET PO SCH (12:12)
[2018-01-29] MEDS: FLUTICASONE 50 MCG NASAL SPRAY 16 GM BOTTLE BOTH NARES SCH (12:13)
[2018-01-29] MEDS: MONTELUKAST 10 MG TABLET PO SCH (20:57)
[2018-01-30] MEDS ORDERED: MORPHINE 4 MG/1 ML VIAL IV ONE (06:00)
[2018-01-30] MEDS: PANTOPRAZOLE 40 MG TABLET PO SCH ×2 (06:12→18:39)
[2018-01-30] MEDS ORDERED: MERCAPTOPURINE 50 MG TABLET PO SCH (09:00)
[2018-01-30] MEDS: MAGNESIUM OXIDE 400 MG TABLET PO SCH (09:44)
[2018-01-30] MEDS: APIXABAN 5 MG TABLET PO SCH ×2 (09:44→21:16)
[2018-01-30] MEDS: COLESTIPOL 1 GM TABLET PO SCH ×2 (09:44→21:18)
[2018-01-30] MEDS: THEOPHYLLINE ER 300 MG TABLET PO SCH (09:44)
[2018-01-30] MEDS: FERROUS GLUCONATE 324 MG TABLET PO SCH ×2 (09:45→21:16)
[2018-01-30] MEDS: LOSARTAN 50 MG TABLET PO SCH (09:45)
[2018-01-30] MEDS: CETIRIZINE 10 MG TABLET PO SCH (09:45)
[2018-01-30] MEDS: ZINC OXIDE PASTE 113 GM TUBE TOP SCH ×2 (09:45→21:15)
[2018-01-30] MEDS: FLUTICASONE 50 MCG NASAL SPRAY 16 GM BOTTLE BOTH NARES SCH (09:45)
[2018-01-30] MEDS: MULTIVITAMIN (BEROCCA) TABLET PO SCH (09:45)
[2018-01-30] MEDS: MESALAMINE 800 MG TABLET PO SCH ×3 (09:45→21:17)
[2018-01-30] MEDS: CIPROFLOXACIN 500 MG TABLET PO SCH (09:45)
[2018-01-30] MEDS: POTASSIUM CHLORIDE 20 MEQ TABLET PO SCH (09:45)
[2018-01-30] MEDS: TAMSULOSIN 0.4 MG CAPSULE PO SCH (09:45)
[2018-01-30] MEDS: ERTAPENEM 1,000 MG in SODIUM CHLORIDE 0.9% 100 ML IV SCH (15:15)
[2018-01-30] MEDS: MORPHINE 4 MG/1 ML VIAL IV PRN ×2 (17:00→23:59)
[2018-01-30 18:17] LABS: Troponin I < 0.015 NG/ML (0.00-0.045)
[2018-01-30] MEDS: MONTELUKAST 10 MG TABLET PO SCH (21:15)
[2018-01-31 05:24] LABS: Basophils # 0.1 10*3/uL (0.0-0.2); Basophils % 1.2 % (0.0-0.8); Eosinophils # 0.2 10*3/uL (0.0-0.87); Hematocrit 26.5 VOL% (35.7-47.0); Immature Granulocytes % 0.9 %; Immature Granulocytes Absolute 0.04 #; Lymphocytes % 24.3 % (21.3-54.2); Mean Corpuscular Hemoglobin 27 PG (27-34); Mean Corpuscular Volume 79.1 FL (87-102); Mean Platelet Volume 10.1 FL (9.6-12.0); Monocytes # 0.5 10*3/uL (0.11-0.8); Monocytes % 11.3 % (1.7-12.7); Neutrophils # 2.5 10*3/uL (1.4-7.4); Neutrophils % 58.3 % (38.7-73.9); Platelet Count 326 T/CUMM (130-400); Red Blood Count 3.35 MC/CUMM (3.8-5.5); Red Cell Distribution Width 15.8 % (9.3-17.3); White Blood Count 4.2 T/CUMM (4-12)
[2018-01-31 05:36] LABS: Calcium 7.4 MG/DL (8.5-10.1); Osmolality,Calculated 270.7 MOS/KG (273-304); Potassium 3.9 MMOL/L (3.5-5.1)
[2018-01-31 05:59] LABS: Band Neutrophils 2 % (0-10); Eosinophils 6 % (0-10); Lymphocytes 29 % (20-55); Segmented Neutrophils 60 % (50-85); Total Cells Counted 100
[2018-01-31 06:01] LABS: Anisocytosis 1+; Hypochromasia 1+; Platelet Estimate Adequate
[2018-01-31] MEDS: PANTOPRAZOLE 40 MG TABLET PO SCH ×2 (06:02→20:56)
[2018-01-31] MEDS ORDERED: MAGNESIUM SULF RIDER 4 GM in PREMIX 1 EACH IV PRN (09:06)
[2018-01-31] MEDS ORDERED: MAGNESIUM SULF RIDER 2 GM in PREMIX 1 EACH IV PRN (09:06)
[2018-01-31] MEDS: TAMSULOSIN 0.4 MG CAPSULE PO SCH (09:08)
[2018-01-31] MEDS: THEOPHYLLINE ER 300 MG TABLET PO SCH (09:08)
[2018-01-31] MEDS: POTASSIUM CHLORIDE 20 MEQ TABLET PO SCH (09:09)
[2018-01-31] MEDS: MESALAMINE 800 MG TABLET PO SCH ×3 (09:10→20:56)
[2018-01-31] MEDS: LOSARTAN 50 MG TABLET PO SCH (09:11)
[2018-01-31] MEDS: APIXABAN 5 MG TABLET PO SCH ×2 (09:11→20:57)
[2018-01-31] MEDS: CETIRIZINE 10 MG TABLET PO SCH (09:11)
[2018-01-31] MEDS: MULTIVITAMIN (BEROCCA) TABLET PO SCH (09:11)
[2018-01-31] MEDS: MAGNESIUM OXIDE 400 MG TABLET PO SCH (09:11)
[2018-01-31] MEDS: FERROUS GLUCONATE 324 MG TABLET PO SCH ×2 (09:11→20:56)
[2018-01-31] MEDS: ZINC OXIDE PASTE 113 GM TUBE TOP SCH ×2 (09:16→21:01)
[2018-01-31] MEDS: FLUTICASONE 50 MCG NASAL SPRAY 16 GM BOTTLE BOTH NARES SCH (10:05)
[2018-01-31] MEDS: COLESTIPOL 1 GM TABLET PO SCH ×3 (10:05→21:00)
[2018-01-31] MEDS: ERTAPENEM 1,000 MG in SODIUM CHLORIDE 0.9% 100 ML IV SCH (12:01)
[2018-01-31] MEDS ORDERED: FUROSEMIDE 20 MG/2 ML VIAL IV ONE (13:27)
[2018-01-31] MEDS: MONTELUKAST 10 MG TABLET PO SCH (20:56)
[2018-01-31] MEDS: MORPHINE 4 MG/1 ML VIAL IV PRN (20:57)
[2018-02-01] MEDS: PANTOPRAZOLE 40 MG TABLET PO SCH ×3 (06:04→18:25)
[2018-02-01 06:12] LABS: Basophils # 0.1 10*3/uL (0.0-0.2); Basophils % 1.3 % (0.0-0.8); Eosinophils # 0.1 10*3/uL (0.0-0.87); Eosinophils % 3.1 % (0.00-10.9); Hematocrit 24.9 VOL% (35.7-47.0); Hemoglobin 8.4 GM/DL (12.0-16.0); Immature Granulocytes % 0.8 %; Immature Granulocytes Absolute 0.03 #; Lymphocytes % 25.9 % (21.3-54.2); Mean Corpuscular HGB Conc 33.7 GM/DL (32-36); Mean Corpuscular Hemoglobin 27 PG (27-34); Mean Platelet Volume 9.8 FL (9.6-12.0); Monocytes # 0.5 10*3/uL (0.11-0.8); Monocytes % 12.6 % (1.7-12.7); Neutrophils # 2.2 10*3/uL (1.4-7.4); Neutrophils % 56.3 % (38.7-73.9); Platelet Count 368 T/CUMM (130-400); Red Blood Count 3.15 MC/CUMM (3.8-5.5); Red Cell Distribution Width 15.8 % (9.3-17.3); White Blood Count 3.8 T/CUMM (4-12)
[2018-02-01 06:28] LABS: Calcium 7.2 MG/DL (8.5-10.1); Osmolality,Calculated 274.4 MOS/KG (273-304); Potassium 3.9 MMOL/L (3.5-5.1)
[2018-02-01 06:33] LABS: Hypochromasia 1+
[2018-02-01 06:34] LABS: Microcytosis 1+; Platelet Estimate Normal; Target Cells Slight; Tear Drop Cells Slight
[2018-02-01] MEDS: THEOPHYLLINE ER 300 MG TABLET PO SCH (08:15)
[2018-02-01] MEDS: MORPHINE 4 MG/1 ML VIAL IV PRN ×2 (08:24→18:25)
[2018-02-01] MEDS ORDERED: ERGOCALCIFEROL 50,000 UNIT CAPSULE PO SCH (08:24)
[2018-02-01] MEDS: LOSARTAN 50 MG TABLET PO SCH (09:32)
[2018-02-01] MEDS: MAGNESIUM OXIDE 400 MG TABLET PO SCH (09:48)
[2018-02-01] MEDS: MULTIVITAMIN (BEROCCA) TABLET PO SCH (09:48)
[2018-02-01] MEDS: POTASSIUM CHLORIDE 20 MEQ TABLET PO SCH (09:48)
[2018-02-01] MEDS: MESALAMINE 800 MG TABLET PO SCH ×3 (09:48→20:55)
[2018-02-01] MEDS: TAMSULOSIN 0.4 MG CAPSULE PO SCH (09:48)
[2018-02-01] MEDS: FERROUS GLUCONATE 324 MG TABLET PO SCH ×2 (09:49→20:56)
[2018-02-01] MEDS: CETIRIZINE 10 MG TABLET PO SCH (09:49)
[2018-02-01] MEDS: FLUTICASONE 50 MCG NASAL SPRAY 16 GM BOTTLE BOTH NARES SCH (09:51)
[2018-02-01] MEDS: ZINC OXIDE PASTE 113 GM TUBE TOP SCH ×2 (10:04→21:00)
[2018-02-01] MEDS: COLESTIPOL 1 GM TABLET PO SCH ×3 (11:20→20:58)
[2018-02-01] MEDS: APIXABAN 5 MG TABLET PO SCH ×2 (11:20→20:55)
[2018-02-01] MEDS: ERTAPENEM 1,000 MG in SODIUM CHLORIDE 0.9% 100 ML IV SCH (12:19)
[2018-02-01] MEDS: POTASSIUM CHLORIDE 20 MEQ TABLET PO PRN (20:55)
[2018-02-01] MEDS: MONTELUKAST 10 MG TABLET PO SCH (20:56)
[2018-02-02] MEDS: MORPHINE 4 MG/1 ML VIAL IV PRN ×3 (02:39→19:56)
[2018-02-02] MEDS: PANTOPRAZOLE 40 MG TABLET PO SCH ×2 (06:27→19:35)
[2018-02-02 06:48] LABS: Basophils # 0.1 10*3/uL (0.0-0.2); Basophils % 1.7 % (0.0-0.8); Eosinophils # 0.2 10*3/uL (0.0-0.87); Eosinophils % 3.7 % (0.00-10.9); Hematocrit 25.9 VOL% (35.7-47.0); Hemoglobin 8.6 GM/DL (12.0-16.0); Immature Granulocytes % 0.2 %; Immature Granulocytes Absolute 0.01 #; Lymphocytes % 25.1 % (21.3-54.2); Mean Corpuscular HGB Conc 33.2 GM/DL (32-36); Mean Corpuscular Hemoglobin 27 PG (27-34); Mean Corpuscular Volume 80.2 FL (87-102); Mean Platelet Volume 9.4 FL (9.6-12.0); Monocytes # 0.5 10*3/uL (0.11-0.8); Monocytes % 12.4 % (1.7-12.7); Neutrophils # 2.3 10*3/uL (1.4-7.4); Neutrophils % 56.9 % (38.7-73.9); Platelet Count 392 T/CUMM (130-400); Red Blood Count 3.23 MC/CUMM (3.8-5.5); Red Cell Distribution Width 15.8 % (9.3-17.3)
[2018-02-02 07:21] LABS: Calcium 7.3 MG/DL (8.5-10.1); Osmolality,Calculated 275.4 MOS/KG (273-304); Potassium 4.1 MMOL/L (3.5-5.1)
[2018-02-02 07:23] LABS: Band Neutrophils 2 % (0-10); Eosinophils 8 % (0-10); Hypochromasia 1+; Lymphocytes 27 % (20-55); Platelet Estimate Adequate; Segmented Neutrophils 52 % (50-85); Total Cells Counted 100
[2018-02-02 07:24] LABS: Giant Platelets Few; Microcytosis 1+; Ovalocytes Slight
[2018-02-02] MEDS: THEOPHYLLINE ER 300 MG TABLET PO SCH (09:03)
[2018-02-02] MEDS: TAMSULOSIN 0.4 MG CAPSULE PO SCH (09:04)
[2018-02-02] MEDS: CETIRIZINE 10 MG TABLET PO SCH (09:04)
[2018-02-02] MEDS: COLESTIPOL 1 GM TABLET PO SCH ×2 (09:04→20:43)
[2018-02-02] MEDS: FERROUS GLUCONATE 324 MG TABLET PO SCH ×2 (09:04→20:42)
[2018-02-02] MEDS: MAGNESIUM OXIDE 400 MG TABLET PO SCH (09:04)
[2018-02-02] MEDS: POTASSIUM CHLORIDE 20 MEQ TABLET PO SCH (09:04)
[2018-02-02] MEDS: MESALAMINE 800 MG TABLET PO SCH ×3 (09:04→20:42)
[2018-02-02] MEDS: MULTIVITAMIN (BEROCCA) TABLET PO SCH (09:04)
[2018-02-02] MEDS: LOSARTAN 50 MG TABLET PO SCH (09:04)
[2018-02-02] MEDS: APIXABAN 5 MG TABLET PO SCH ×2 (09:04→20:42)
[2018-02-02] MEDS: ZINC OXIDE PASTE 113 GM TUBE TOP SCH ×2 (09:05→22:31)
[2018-02-02] MEDS: FLUTICASONE 50 MCG NASAL SPRAY 16 GM BOTTLE BOTH NARES SCH (09:07)
[2018-02-02] MEDS ORDERED: ALUMINUM/MAGNES/SIMETH MAX STR 30 ML UDCUP PO PRN (09:11)
[2018-02-02] MEDS ORDERED: SODIUM CHLORIDE 0.9% 1,000 ML IV PRN (10:41)
[2018-02-02] MEDS: ERTAPENEM 1,000 MG in SODIUM CHLORIDE 0.9% 100 ML IV SCH (12:53)
[2018-02-02] MEDS: MONTELUKAST 10 MG TABLET PO SCH (20:42)
[2018-02-02 22:52] LABS: Hematocrit 30.7 VOL% (35.7-47.0)
[2018-02-02 22:53] LABS: Hemoglobin 10.4 GM/DL (12.0-16.0)
[2018-02-03] MEDS: MORPHINE 4 MG/1 ML VIAL IV PRN ×2 (03:40→09:35)
[2018-02-03 05:41] LABS: Basophils # 0.1 10*3/uL (0.0-0.2); Basophils % 1.5 % (0.0-0.8); Eosinophils # 0.2 10*3/uL (0.0-0.87); Eosinophils % 3.9 % (0.00-10.9); Hematocrit 30.1 VOL% (35.7-47.0); Hemoglobin 9.9 GM/DL (12.0-16.0); Immature Granulocytes % 0.4 %; Immature Granulocytes Absolute 0.02 #; Lymphocytes # 0.8 10*3/uL (1.4-4.0); Lymphocytes % 17.8 % (21.3-54.2); Mean Corpuscular HGB Conc 32.9 GM/DL (32-36); Mean Corpuscular Hemoglobin 27 PG (27-34); Mean Corpuscular Volume 81.6 FL (87-102); Mean Platelet Volume 9.9 FL (9.6-12.0); Monocytes # 0.7 10*3/uL (0.11-0.8); Monocytes % 14.6 % (1.7-12.7); Neutrophils # 2.8 10*3/uL (1.4-7.4); Neutrophils % 61.8 % (38.7-73.9); Platelet Count 418 T/CUMM (130-400); Red Blood Count 3.69 MC/CUMM (3.8-5.5); Red Cell Distribution Width 15.9 % (9.3-17.3); White Blood Count 4.6 T/CUMM (4-12)
[2018-02-03 06:16] LABS: Band Neutrophils 3 % (0-10); Eosinophils 8 % (0-10); Lymphocytes 22 % (20-55); Segmented Neutrophils 61 % (50-85); Total Cells Counted 100
[2018-02-03 06:17] LABS: Atypical Lymphocytes Few; Hypochromasia 1+; Microcytosis 1+; Platelet Estimate Increased
[2018-02-03] MEDS: PANTOPRAZOLE 40 MG TABLET PO SCH (06:30)
[2018-02-03] MEDS: THEOPHYLLINE ER 300 MG TABLET PO SCH (09:33)
[2018-02-03] MEDS: MESALAMINE 800 MG TABLET PO SCH (09:33)
[2018-02-03] MEDS: APIXABAN 5 MG TABLET PO SCH (09:33)
[2018-02-03] MEDS: LOSARTAN 50 MG TABLET PO SCH (09:33)
[2018-02-03] MEDS: MULTIVITAMIN (BEROCCA) TABLET PO SCH (09:33)
[2018-02-03] MEDS: COLESTIPOL 1 GM TABLET PO SCH (09:34)
[2018-02-03] MEDS: MAGNESIUM OXIDE 400 MG TABLET PO SCH (09:34)
[2018-02-03] MEDS: CETIRIZINE 10 MG TABLET PO SCH (09:34)
[2018-02-03] MEDS: TAMSULOSIN 0.4 MG CAPSULE PO SCH (09:34)
[2018-02-03] MEDS: POTASSIUM CHLORIDE 20 MEQ TABLET PO SCH (09:35)
[2018-02-03] MEDS: FERROUS GLUCONATE 324 MG TABLET PO SCH (09:35)
[2018-02-03] MEDS: ZINC OXIDE PASTE 113 GM TUBE TOP SCH (09:40)
[2018-02-03] MEDS: FLUTICASONE 50 MCG NASAL SPRAY 16 GM BOTTLE BOTH NARES SCH (09:40)
[2018-02-03 10:49] VITALS: BP 109/73
[2018-02-03 10:58] LABS: PT Patient Result 10.6 SECS
[2018-02-03 17:36] LABS: Factor V Leiden (R506Q) Mutati Negative (Negative)
[2018-02-04 13:31] LABS: Protein C Antigen 46 % (70-150)
== END 2018-02-03 12:00 | disposition home or self-care (01) | DRG 176 ==
LOC: N.ED 10:38 → N.EDINP 10:38 → N.5E 18:42 → SUATTDRO 01-28 09:49
PROVIDERS: ADMIT Internal Medicine; ATTEND Internal Medicine